=== PATIENT | female | born 1935 | race Caucasian/White ===

== ENCOUNTER 2021-08-30 15:09 | Inpatient (IN) | payer MEDICARE ==
[~2021-08-30] VITALS: Ht 170.2 cm; Wt 75.5 kg
[2021-08-30 15:39] LABS: BASOPHILS ABSOLUTE AUTO 0.04 K/mm3 (0.00-0.23); BASOPHILS PERCENT AUTO 1 % (0-2); EOSINOPHILS ABSOLUTE AUTO 0.13 K/mm3 (0.00-0.68); EOSINOPHILS PERCENT AUTO 2 % (0-6); Hematocrit 24.8 % (33.0-51.0); Hemoglobin 6.8 g/dL (11.5-16.0); IMMATURE GRAN ABSOLUTE AUTO 0.01 K/mm3 (0.00-0.10); IMMATURE GRAN PERCENT AUTO 0 % (0-1); LYMPHOCYTES ABSOLUTE AUTO 0.75 K/mm3 (0.84-5.20); LYMPHOCYTES PERCENT AUTO 13 % (21-46); MONOCYTES ABSOLUTE AUTO 0.39 K/mm3 (0.16-1.47); MONOCYTES PERCENT AUTO 7 % (4-13); Mean Corpuscular HGB 21.3 pg (26.0-34.0); Mean Corpuscular HGB Conc 27.4 g/dL (31.5-36.5); Mean Corpuscular Volume 78 fL (80-100); Mean Platelet Volume 9.5 fL (9.1-12.4); NEUTROPHILS ABSOLUTE AUTO 4.67 K/mm3 (1.96-9.15); NEUTROPHILS PERCENT AUTO 78 % (41-73); Platelet Count 387 K/mm3 (150-400); RDW Coefficient Variation 18.2 % (11.7-14.2); RDW Standard Deviation 49.1 fL (35.1-46.3); White Blood Cell Count 5.99 K/mm3 (4.00-11.30)
[2021-08-30] MEDS ORDERED: FERSU300 PO (15:45)
[2021-08-30] MEDS ORDERED: VITAMIN D31000 UNI1 (15:45)
[2021-08-30] MEDS ORDERED: MACRODANTIN100 M8 PO (15:46)
[2021-08-30 16:13] LABS: Alanine Aminotransfer (ALT/SGP 19 U/L (12-78); Albumin, Blood 3.8 g/dL (3.4-5.0); Albumin/Globulin Ratio 1.4 (0.8-1.8); Alk Phos 79 U/L (50-136); Anion Gap 4 mmol/L (6-16); Aspartate Aminotrans (AST/SGOT 15 U/L (12-37); Bilirubin, Total 0.7 mg/dL (0.1-1.0); Blood Urea Nitrogen 12 mg/dL (8-24); Bun/Creatinine Ratio 16.8 (12.0-20.0); CO2, Blood 26 mmol/L (21-32); Calcium, Blood 9.2 mg/dL (8.5-10.1); Chloride, Blood 110 mmol/L (98-108); Creatinine, Blood 0.71 mg/dL (0.40-1.00); Globulin, Blood 2.8 g/dL (2.2-4.0); Glomerular Filtration Rate >60 (60-); Glucose, Blood 100 mg/dL (70-99); Potassium, Blood 4.2 mmol/L (3.5-5.5); Sodium, Blood 140 mmol/L (136-145); Total Protein, Blood 6.6 g/dL (6.4-8.2)
[2021-08-31 03:26] LABS: Hematocrit 27.1 % (33.0-51.0); Mean Corpuscular HGB 23.1 pg (26.0-34.0); Mean Corpuscular HGB Conc 29.5 g/dL (31.5-36.5); Mean Corpuscular Volume 78 fL (80-100); Mean Platelet Volume 9.2 fL (9.1-12.4); Platelet Count 304 K/mm3 (150-400); RDW Coefficient Variation 18.5 % (11.7-14.2); RDW Standard Deviation 50.4 fL (35.1-46.3); Red Blood Cell Count 3.47 M/mm3 (3.80-5.20); White Blood Cell Count 7.53 K/mm3 (4.00-11.30)
[2021-08-31 03:53] LABS: Anion Gap 5 mmol/L (6-16); Blood Urea Nitrogen 10 mg/dL (8-24); Bun/Creatinine Ratio 14.6 (12.0-20.0); CO2, Blood 25 mmol/L (21-32); Calcium, Blood 8.3 mg/dL (8.5-10.1); Chloride, Blood 110 mmol/L (98-108); Creatinine, Blood 0.69 mg/dL (0.40-1.00); Glomerular Filtration Rate >60 (60-); Glucose, Blood 97 mg/dL (70-99); Potassium, Blood 3.7 mmol/L (3.5-5.5); Sodium, Blood 140 mmol/L (136-145)
--- NOTE | 2021-08-31 04:34 | NUR ---
SHIFT SUMMARY PATIENT WAS INDEPENDENT T/O SHIFT. REQUIRED STAFF IN ROOM TO ASSIST WITH DETACHING LINES FOR AMBULATION TO TOILET. PATIENT HAD 3-4 VERY SMALL BM THAT DECREASED IN BLOOD EACH TIME. STOOL IS NOW LOOSE AND BROWN. HGB THIS AM INCREASED TO 8.0 FROM 6.8 AFTER RECEIVING 2 UNITS PRBC IN ER. PATIENT HAS BEEN NPO SINCE 0100 W/ BETHANIE TO BEGIN @ 0700 FOR COLONOSCOPY PREP THIS AFTERNOON W/ DR. KULKARNI. PROTONIX GTT INF @ 10ML/HR TO RT FA IV. REPORT GIVEN TO MALORIE DINH.
--- NOTE | 2021-08-31 04:42 | NUR ---
ASSUMED CARE @ 0430 PT ALERT AND ORIENTED X4, VERY PLEASANT AND COOPERATIVE. PT ABLE TO WALK WITH STRONG STEADY GAIT. BED ALARM ON PATIENT FORGETS TO USE CALL LIGHT BEFORE GETTING UP. REMINDED PATIENT OF COLONOSOPY PREP AT 0700. PT BACK TO BED AND NOW SLEEPING. PROTONIX INFUSION.
--- NOTE | 2021-08-31 07:47 | NUR ---
ASSUMPTION OF CARE RECEIVED REPORT FROM RASTA ESPANA, ASSUMED CARE OF PATIENT AT 0715. PATIENT A/O, SITTING UP IN BED. EDUCATED REGARDING GOLYTELY COLONOSCOPY PREP AND SET UP COMMODE AT BEDSIDE FOR SAFE ACCESS WITH NON-SKID SOCKS IN PLACE. PATIENT VERBALIZED UNDERSTANDING AND EDUCATED WITH USE OF CALL LIGHT. VITALS STABLE ON RA. PROTONIX INFUSING AT 10ML/HR ORDERED. WILL REVIEW ORDERS AND TREAT PRESCRIBED.
--- NOTE | 2021-08-31 12:15 | NUR ---
BETHANIE NOTIFIED DR. KULKARNI AT THIS TIME THAT PATIENT FINISHED GOLYTELY. PATIENT CURRENTLY ON COMMODE WITH CLEAR, GREEN LIQUID CONTINUOUS BOWEL MOVEMENTS. VITALS REMAIN STABLE.
[2021-08-31 12:53] LABS: Hematocrit 33.3 % (33.0-51.0); Hemoglobin 9.7 g/dL (11.5-16.0)
--- NOTE | 2021-08-31 16:50 | NUR ---
PROCEDURE PATIENT TO OR ASSISTED BY MALORIE ROMAN FOR COLONOSCOPY.
--- NOTE | 2021-08-31 17:09 | NUR ---
INTO SDS VIA GURNEY FROM ICU AFTER NUCLEAR POWERPLANT MECHANIC OBTAINING ORDER FOR PROCEDURE TO BE DONE IN SDS.History, Chart, Medications and Allergies reviewed before start of procedure.Patient confirms NPO status and agrees with scheduled surgery. Patient states colon prep results clear.Lungs clear T/O to Auscultation.
--- NOTE | 2021-08-31 17:59 | NUR ---
08/31/21 0677 Low Cardenas History, Chart, Medications and Allergies reviewed before start of procedure. Patient confirms NPO status and agrees with scheduled surgery. 3-LEAD EKG REVIEWED WITH PHYSICIAN PRIOR TO START OF PROCEDURE. MONITOR INTACT WITH CONTINUOUS PULSE OXIMETRY AND INTERMITTENT BP. PATIENT DETERMINED TO BE ASA APPROPRIATE FOR PROPOFOL SEDATION PRIOR TO START OF PROCEDURE BY DR. KULKARNI
--- NOTE | 2021-08-31 19:44 | NUR ---
ASSUMED CARE @ 1900 PT CAME BACK TO ICU AT AROUND 1930 - PT WAS EAGER TO BE DISCHARGED. EDUCATED PATIENT ON DISCHARGE PACKET. PT WAS ALERT AND ORIENTED, VERY STABLE AND ABLE TO WALK STEADILY. PT AT BEDSIDE AND WAS VERY HELPFUL WITH GETTING PATIENT READY FOR DISCHARGE. DISCHARGED PATIENT AT 1945. [facility] TECH KACEY MATTHEWS ESCORTED PATIENT AND OUT.
== END 2021-08-31 19:42 | disposition home or self-care (01) | DRG 378 ==
LOC: ER 15:09 → ICUW 18:28
PROVIDERS: Emergency Medicine; Internal Medicine; Internal Medicine Gastroenterology; ADMIT Internal Medicine
PROC: 0DBN8ZZ Excision of Sigmoid Colon, Via Natural or Artificial Opening Endoscopic (ICD-10-PCS; principal; 2021-08-31 15:45)
PROC: 30233N1 Transfusion of Nonautologous Red Blood Cells into Peripheral Vein, Percutaneous Approach (ICD-10-PCS; 2021-08-31 15:45)
DX: K62.5 Hemorrhage of anus and rectum (principal); D62 Acute posthemorrhagic anemia; K64.4 Residual hemorrhoidal skin tags; I10 Essential (primary) hypertension; Z85.038 Personal history of other malignant neoplasm of large intestine; K21.9 Gastro-esophageal reflux disease without esophagitis; M81.0 Age-related osteoporosis without current pathological fracture; Z87.891 Personal history of nicotine dependence; Z88.2 Allergy status to sulfonamides; Z79.899 Other long term (current) drug therapy; K63.5 Polyp of colon; K64.8 Other hemorrhoids
CPT/HCPCS: 36415; 36430; 80048; 80053; 84484; 85014; 85018; 85025; 85027; 86850; 86900; 86901; 86920; 93005; 93010; 96365; 96366; 96376; 99285-25; A9270; C9113; J2704; J7030; J7120; P9016